=== PATIENT | male | born 1950 | race Caucasian/White ===

== ENCOUNTER 2023-05-17 12:26 | Outpatient (CLI) | payer MEDICARE ==
[~2023-05-17 12:26] MED LIST: GLIM2TAB6 PO; METF-438 PO; MULT-1085 PO; PIOG30TA71 PO
[2023-05-17] MEDS ORDERED: iohexol 350MG/ML 100ml bottle IV ONE (12:47)
== END 2023-05-17 23:59 | disposition home or self-care (01) ==
LOC: RAD 12:26
PROVIDERS: ATTEND Surgery
DX: J98.11 Atelectasis (principal); R06.02 Shortness of breath; Z98.890 Other specified postprocedural states
CPT/HCPCS: 71275; 74177; J3490; Q9967

== ENCOUNTER 2023-05-19 10:57 | Day surgery (SDC) | payer MEDICARE ==
[2023-05-19] VITALS (11 sets, daily range): BP systolic 105–152; BP diastolic 60–78; PULSE 78–88; RESP 14–18; TEMP 97.9; O2SAT 94–97
[~2023-05-19] VITALS: Ht 180.3 cm; Wt 86.5 kg
[2023-05-19] MEDS ORDERED: ACET-1025 PO (11:30)
[2023-05-19] MEDS ORDERED: ESOM20CA PO (11:30)
[2023-05-19] MEDS ORDERED: CHOL4POW4 PO (11:30)
[2023-05-19 12:09] LABS: BASOPHILS # (AUTO) 0.1 X10'3 (0-0.2); BASOPHILS % (AUTO) 0.8 % (0-1); EOSINOPHILS # (AUTO) 0.3 X10'3 (0-0.9); EOSINOPHILS % (AUTO) 2.5 % (0-6); HEMATOCRIT 36.2 % (42.0-52.0); HEMOGLOBIN 11.8 g/dl (14.0-17.9); LYMPHOCYTES % (AUTO) 16.9 % (21-51); MEAN CORPUSCULAR HEMOGLOBIN 29.1 PG (27.0-31.0); MEAN CORPUSCULAR HGB CONC 32.7 g/dL (33.0-36.5); MEAN CORPUSCULAR VOLUME 88.9 FL (78-98); MEAN PLATELET VOLUME 8.6 FL (7.4-10.4); MONOCYTES # (AUTO) 1.5 X10'3 (0-0.9); MONOCYTES % (AUTO) 12.7 % (2-12); NEUTROPHILS % (AUTO) 67.1 % (42-75); PLATELET COUNT 449 X10'3 (140-440); RED BLOOD COUNT 4.07 X10'6 (4.70-6.10); WHITE BLOOD COUNT 11.9 X10'3 (4.5-11.0)
[2023-05-19 12:12] LABS: PROTHROMBIN TIME 10.9 SECONDS (9.0-12.0)
[2023-05-19 12:13] LABS: ALBUMIN 3.1 G/DL (3.4-5.0); ANION GAP 11 (8-16); BLOOD UREA NITROGEN 15 MG/DL (7-18); CALCIUM 10.1 MG/DL (8.5-10.1); CHLORIDE 100 MMOL/L (99-107); CREATININE 0.94 MG/DL (0.60-1.10); GLUCOSE 226 MG/DL (70-104); SODIUM 137 MMOL/L (135-145); TOTAL CARBON DIOXIDE 26.1 MMOL/L (24-32); eCRCL 78 ML/MIN; eGFR 79 ML/MIN
[2023-05-19] MEDS ORDERED: fentaNYL/PF 50MCG/1 ML 2ML syringe ONE (12:31)
[2023-05-19] MEDS ORDERED: midazolam 1 mg/ML 2ml injection ONE (12:31)
[2023-05-19] MEDS ORDERED: ceFAZolin/D5W- 1GM premix 50 ML IV STA (12:52)
== END 2023-05-19 16:05 | disposition home or self-care (01) ==
LOC: SSTAY O 10:57
PROVIDERS: ATTEND Radiology Vascular & Interventional Radiology
DX: K91.89 Other postprocedural complications and disorders of digestive system (principal); E11.9 Type 2 diabetes mellitus without complications; Z98.890 Other specified postprocedural states; Z79.899 Other long term (current) drug therapy; Z79.84 Long term (current) use of oral hypoglycemic drugs; Y83.8 Other surgical procedures as the cause of abnormal reaction of the patient, or of later complication, without mention of misadventure at the time of the procedure
CPT/HCPCS: 36415; 49406; 80048; 85025; 85610; 87070; 87077; 87186; 99152; 99153; C1729; C1769; J2250; J3010; J7030; A4421; A4615; A6258

== ENCOUNTER 2023-05-31 14:01 | Outpatient (CLI) | payer MEDICARE ==
[~2023-05-31 14:01] MED LIST changes: +ACET-1025 PO; +CHOL4POW4 PO; +ESOM20CA PO
[2023-05-31] MEDS ORDERED: iohexol 300mg/ml 100ml inj. ONE (15:35)
[2023-05-31 16:07] LABS: BASOPHILS # (AUTO) 0.1 X10'3 (0-0.2); BASOPHILS % (AUTO) 0.5 % (0-1); EOSINOPHILS # (AUTO) 0.3 X10'3 (0-0.9); EOSINOPHILS % (AUTO) 2.3 % (0-6); HEMATOCRIT 40.8 % (42.0-52.0); HEMOGLOBIN 13.4 g/dl (14.0-17.9); LYMPHOCYTES # (AUTO) 2.8 X10'3 (1.1-4.8); LYMPHOCYTES % (AUTO) 22.1 % (21-51); MEAN CORPUSCULAR HEMOGLOBIN 29.1 PG (27.0-31.0); MEAN CORPUSCULAR HGB CONC 32.9 g/dL (33.0-36.5); MEAN CORPUSCULAR VOLUME 88.4 FL (78-98); MEAN PLATELET VOLUME 8.9 FL (7.4-10.4); MONOCYTES # (AUTO) 1.5 X10'3 (0-0.9); MONOCYTES % (AUTO) 12.2 % (2-12); NEUTROPHILS # (AUTO) 7.9 X10'3 (1.8-7.7); NEUTROPHILS % (AUTO) 62.9 % (42-75); PLATELET COUNT 407 X10'3 (140-440); RED BLOOD COUNT 4.61 X10'6 (4.70-6.10); RED CELL DISTRIBUTION WIDTH 14.3 % (11.5-14.5); WHITE BLOOD COUNT 12.6 X10'3 (4.5-11.0)
[2023-05-31 16:13] LABS: ALANINE AMINOTRANSFERASE 16 U/L (12-78); ALBUMIN 3.4 G/DL (3.4-5.0); ALBUMIN/GLOBULIN RATIO 0.7 (1.1-1.5); ALKALINE PHOSPHATASE 119 IU/L (46-116); ANION GAP 9 (8-16); ASPARTATE AMINO TRANSFERASE 24 U/L (10-37); BILIRUBIN,TOTAL 0.3 MG/DL (0.1-1.0); BLOOD UREA NITROGEN 16 MG/DL (7-18); BUN/CREATININE RATIO 16.2 (10.0-20.0); CALCIUM 11.6 MG/DL (8.5-10.1); CHLORIDE 99 MMOL/L (99-107); CREATININE 0.99 MG/DL (0.60-1.10); GLUCOSE 104 MG/DL (70-104); POTASSIUM 4.1 MMOL/L (3.5-5.1); SODIUM 136 MMOL/L (135-145); TOTAL CARBON DIOXIDE 27.7 MMOL/L (24-32); TOTAL PROTEIN 8.3 G/DL (6.4-8.2); eGFR 75 ML/MIN
== END 2023-05-31 23:59 | disposition home or self-care (01) ==
LOC: RAD 14:01
PROVIDERS: ATTEND Surgery
DX: Z01.818 Encounter for other preprocedural examination (principal); I82.451 Acute embolism and thrombosis of right peroneal vein; I82.461 Acute embolism and thrombosis of right calf muscular vein; K75.0 Abscess of liver; R22.43 Localized swelling, mass and lump, lower limb, bilateral; M79.604 Pain in right leg; Z98.890 Other specified postprocedural states
CPT/HCPCS: 36415; 74160; 80053; 85025; 93970; J3490; Q9967

== ENCOUNTER 2023-06-20 13:14 | Outpatient (CLI) | payer MEDICARE | END 2023-06-20 23:59 | disposition home or self-care (01) | LOC: RAD 13:14 | PROVIDERS: ATTEND Surgery | DX: E87.70 Fluid overload, unspecified (principal); R80.2 Orthostatic proteinuria, unspecified | CPT/HCPCS: 78226; A9537 ==